=== PATIENT | male | born 1980 | race Two or more races ===

== ENCOUNTER 2019-08-16 10:47 | Inpatient (IN) | payer OTHER ==
--- NOTE | 2019-08-16 15:04 | PN ---
[facility] Progress Note Note: Patient is a 38 male homeless with hx of alcohol dependence is here for alcohol detox referred from [facility] after evaluation for alcohol intoxication evaluated 08/16/2019. As per hospital discharge summary patient was also evaluated d/t suicidal ideation, patient denies suicidal ideation. PMHX : multiple falls d/t alcohol intoxication with last fall two days ago d/t not using cane. Psych: depression. Patient meets criteria for admission to Detox for alcohol
[2019-08-16 15:44] VITALS: BMI 19.8
--- NOTE | 2019-08-16 16:05 | HP ---
CIWA Score Nausea/Vomitin-No Nausea/No Vomiting Muscle Tremors: 2 Anxiety: 0-No Anxiety, at Ease Agitation: 0-Normal Activity Paroxysmal Sweats: No Perspiration Orientation: 0-Oriented Tacttile Disturbances: 0-None Auditory Disturbances: 0-None Visual Disturbances: 0-None Headache: 1-Very Mild CIWA-Ar Total Score: 3 - Admission Criteria OASAS Guidelines: Admission for Medically Managed Detox: Requires at least one of the followin. CIWA greater than 12 2. Seizures within the past 24 hours 3. Delirium tremens within the past 24 hours 4. Hallucinations within the past 24 hours 5. Acute intervention needed for co occurring medical disorder 6. Acute intervention needed for co occurring psychiatric disorder 7. Severe withdrawal that cannot be handled at a lower level of care (continued vomiting, continued diarrhea, abnormal vital signs) requiring intravenous medication and/or fluids 8. Admitting History and Physical - Admission Chief Complaint: alcohol detox History of Present Illness: 38 yo M Hx of Alcohol abuse presents to [facility] for detox and rehab for alcohol abuse. pt states that he drinks 1 pint / day and drinks 2-3 x/ week. pt states that normally he gets tremors . he states that in January he fell after drinking binge drinking episode and had brain hemorrhage requiring surgery. he states that he may have had a seizure but cannot remember. PT was dc from jail in may 26 loss of insurance and lost follow up with neurologist Last drink was yesterday evening and he had a pint of vodka, causing him to fall asleep on the street. someone found him on the street and called the ambulance. he was sent to [facility] and discharged this morning and sent here. Pt is homeless and hopes to talk to a geriatric social work professor. he used to work as a sales operations specialist at [employer] Allergies: denies Pt admitted for detox History Source: Patient Limitations to Obtaining History: No Limitations Admission ROS S - HPI Allergies/Adverse Reactions: Allergies Allergy/AdvReac Type Severity Reaction Status Date / Time Penicillins Allergy Hives Verified 08/16/19 15:29 Exam Limitations: No Limitations - Ebola screening Have you traveled outside of the country in the last 21 days: No Have you had contact with anyone from an Ebola affected area: No - Review of Systems Constitutional: No Symptoms Reported EENT: reports: Recent change in vision (since his brain surgery) Respiratory: denies: Cough, Shortness of Breath Cardiac: denies: Chest Pain GI: denies: Constipated, Diarrhea, Nausea, Poor Appetite, Vomiting Musculoskeletal: reports: Back Pain Neuro: denies: Headache, Numbness Patient History - Smoking Cessation Smoking history: Never smoked - Substances abused Alcohol Substance route: Oral Frequency: Daily Amount used: 1 PINT OF VODKA Age of first use: 19 Date of last use: 08/15/19 Admission Physical Exam [facility] - Vital Signs Vital Signs: Vital Signs - 24 hr 08/16/19 15:30 Temperature 99.1 F Pulse Rate 66 Respiratory 18 Rate Blood Pressure 125/74 - Physical General Appearance: Yes: No Apparent Distress, Nourished HEENTM: Yes: Within Normal Limits, EOMI, Normocephalic, Normal Voice Respiratory: Yes: Chest Non-Tender, Lungs Clear, Normal Breath Sounds, No Respiratory Distress, No Accessory Muscle Use. No: Wheezing Cardiology: Yes: Within Normal Limits, Regular Rhythm, Regular Rate, S1, S2. No : JVD, Murmur Abdominal: Yes: Normal Bowel Sounds, Non Tender, Soft Musculoskeletal: Yes: Back pain Extremities: Yes: Normal Capillary Refill. No: Swelling, Calf Tenderness Neurological: Yes: k 9 police officer II-XII NML intact, Fully Oriented, Normal Mood/Affect Integumentary: Yes: Normal Color, Dry, Other (scabbing of b/l LE) - Diagnostic (1) Alcohol abuse Current Visit: Yes Status: Acute (2) History of intracranial hemorrhage Current Visit: Yes Status: Chronic Cleared for Admission [facility] - Detox or Rehab [facility] Level of Care: Medically Managed Detox Regimen/Protocol: Librium Breathalyzer - Breathalyzer Breathalyzer: 0 Urine Drug Screen - Test Device Lot number: [id number] Expiration date: 02/21/21 - Control Is test valid?: Yes - Results Drug screen NEGATIVE: Yes Inpatient Rehab Admission - Rehab Decision to Admit Inpatient rehab admission?: No
[2019-08-16] MEDS ORDERED: chlordiazePOXIDE HCL 25 MG CAPSULE PO PRN (16:28)
[2019-08-16] MEDS ORDERED: hydrOXYzine PAMOATE 25 MG CAPSULE (FP) PO PRN (16:28)
[2019-08-16] MEDS ORDERED: MAGNESIUM CITRATE 300 ML BOTTLE PO PRN (16:28)
[2019-08-16] MEDS ORDERED: ACETAMINOPHEN 325 MG TABLET (FP) PO PRN ×2 (16:28)
[2019-08-16] MEDS ORDERED: METHOCARBAMOL 500 MG TABLET PO PRN (16:28)
[2019-08-16] MEDS ORDERED: MAGNESIUM HYDROX 2400MG/30ML ORAL SUSPENSION 30 ML CUP PO PRN (16:28)
[2019-08-16] MEDS ORDERED: MENTHOL/PHENOL 1 EACH UD MM PRN (16:28)
[2019-08-16] MEDS ORDERED: BISMUTH SUBSALICYLATE 524 MG/30 ML UD PO PRN (16:28)
[2019-08-16] MEDS ORDERED: IBUPROFEN 400 MG TABLET (FP) PO PRN (16:28)
[2019-08-16] MEDS ORDERED: MAG HYDROX/AL HYDROX/SIMETH 30 ML UNIT-DOSE CUP PO PRN (16:28)
--- NOTE | 2019-08-16 16:40 | PN ---
Teaching Attending Note Name of Resident: Brunilda Padilla ATTENDING PHYSICIAN STATEMENT I saw and evaluated the patient. I reviewed the resident's note and discussed the case with the resident. I agree with the resident's findings and plan as documented. SUBJECTIVE: 38 y.o. male w/ etoh use, reports 1 pint every other day , states he had a seizure in January 2019 requiring brain surgery , then was transferred to a residential until approximately May 2019 , was d/c due to lapse in insurance coverage. d/c from [facility] today , was in ER 2/2 etoh intoxication, depression and suicidal ideation . Pt denies SI / HI at this time. OBJECTIVE: wnwd , NAD , mild UE tremors . Vital Signs - 24 hr 08/16/19 15:30 Temperature 99.1 F Pulse Rate 66 Respiratory 18 Rate Blood Pressure 125/74 ASSESSMENT AND PLAN: AUD - Librium detox pt recalls being on Keppra in the past - will restart for seizure prophylaxis after TBI / brain surgery , w/ intstructions to /up w/ neurology .Pt states his brother took him to a neurologist's office in [place] and was unable to be seen due to lack of insurance coverage. Pt is agreeable to f/up w/ neurology .
[2019-08-16] MEDS: chlordiazePOXIDE HCL 25 MG CAPSULE PO SCH ×2 (18:33→22:24)
[2019-08-16] MEDS: THIAMINE HCL 100 MG TABLET (FP) PO SCH (22:25)
[2019-08-16] MEDS: levETIRAcetam 500 MG TABLET (FP) PO SCH (22:25)
[2019-08-17] MEDS: chlordiazePOXIDE HCL 25 MG CAPSULE PO SCH ×4 (06:01→22:11)
[2019-08-17 09:47] LABS: HEMATOCRIT 42.2 % (35.4-49); HEMOGLOBIN 14.1 GM/dL (11.7-16.9); MCH 31.2 pg (25.7-33.7); MCHC 33.5 g/dl (32.0-35.9); MEAN PLT VOLUME 7.6 fl (7.5-11.1); PLATELET COUNT 217 K/MM3 (134-434); RBC 4.54 M/mm3 (4.00-5.60); RDW 15.6 % (11.9-15.9); WHITE BLOOD COUNT 6.2 K/mm3 (4.0-10.0)
[2019-08-17 10:06] LABS: ALBUMIN 3.1 g/dl (3.4-5.0); BILIRUBIN,TOTAL 0.4 mg/dL (0.2-1); BLOOD UREA NITROGEN 7.5 mg/dL (7-18); CREATININE 0.9 mg/dL (0.55-1.3); POTASSIUM 3.2 mmol/L (3.5-5.1); TOT PROT 6.4 g/dl (6.4-8.2)
[2019-08-17] MEDS: levETIRAcetam 500 MG TABLET (FP) PO SCH ×2 (10:26→22:11)
[2019-08-17] MEDS: PRENATAL VITAMINS W/ FOLIC ACID TABLET (FP) PO SCH (10:26)
--- NOTE | 2019-08-17 10:36 | PN ---
S CIWA - CIWA Score Nausea/Vomitin Muscle Tremors: 2 Anxiety: 2 Agitation: 0-Normal Activity Paroxysmal Sweats: 3 Orientation: 0-Oriented Tacttile Disturbances: 1-Very Mild Itch/Numbness Auditory Disturbances: 0-None Visual Disturbances: 1-Very Mild Sensitivity Headache: 1-Very Mild CIWA-Ar Total Score: 13 [facility] Progress Note (SOAP) Subjective: Patient c/o of interrupted sleep, nausea and vomiting , chronic shoulder pain, body aches Objective: 08/17/19 15:14 Vital Signs Temperature 97.9 F 08/17/19 13:26 Pulse Rate 68 08/17/19 13:26 Respiratory Rate 16 08/17/19 13:26 Blood Pressure 112/76 08/17/19 13:26 O2 Sat by Pulse Oximetry (%) Laboratory Last Values WBC 6.2 K/mm3 (4.0-10.0) 08/17/19 07:30 RBC 4.54 M/mm3 (4.00-5.60) 08/17/19 07:30 Hgb 14.1 GM/dL (11.7-16.9) 08/17/19 07:30 Hct 42.2 % (35.4-49) 08/17/19 07:30 MCV 93.0 fl (80-96) 08/17/19 07:30 MCH 31.2 pg (25.7-33.7) 08/17/19 07:30 MCHC 33.5 g/dl (32.0-35.9) 08/17/19 07:30 RDW 15.6 % (11.9-15.9) 08/17/19 07:30 Plt Count 217 K/MM3 (134-434) 08/17/19 07:30 MPV 7.6 fl (7.5-11.1) 08/17/19 07:30 Sodium 140 mmol/L (136-145) 08/17/19 07:30 Potassium 3.2 mmol/L (3.5-5.1) L 08/17/19 07:30 Chloride 103 mmol/L (98-107) 08/17/19 07:30 Carbon Dioxide 32 mmol/L (21-32) 08/17/19 07:30 Anion Gap 5 MMOL/L (8-16) L 08/17/19 07:30 BUN 7.5 mg/dL (7-18) 08/17/19 07:30 Creatinine 0.9 mg/dL (0.55-1.3) 08/17/19 07:30 Est GFR (CKD-EPI)AfAm 123.39 08/17/19 07:30 Est GFR (CKD-EPI)NonAf 106.46 08/17/19 07:30 Random Glucose 98 mg/dL (74-106) 08/17/19 07:30 Calcium 9.0 mg/dL (8.5-10.1) 08/17/19 07:30 Total Bilirubin 0.4 mg/dL (0.2-1) 08/17/19 07:30 AST 14 U/L (15-37) L 08/17/19 07:30 ALT 15 U/L (13-61) 08/17/19 07:30 Alkaline Phosphatase 58 U/L (45-117) 08/17/19 07:30 Total Protein 6.4 g/dl (6.4-8.2) 08/17/19 07:30 Albumin 3.1 g/dl (3.4-5.0) L 08/17/19 07:30 Assessment: 08/17/19 15:16 Patient is Aox3 no acute distress EENT WNL + left shoulder pain, ROM, ambulating in the unit with cane withdrawal sx hypoklalemia Plan: Patient missed 10Am dose librium d/t feeling nauseous zofran prn K-dur 20 qd repeat K+ in AM fluids as tolerated Continue detox continue to monitor
[2019-08-17] MEDS ORDERED: FLU VACCINE QUAD 60 MCG/0.5 ML (MDV 19-20) IM ONE (12:00)
--- NOTE | 2019-08-17 13:46 | EKG ---
Test Reason : Blood Pressure : / mmHG Vent. Rate : 067 BPM Atrial Rate : 067 BPM P-R Int : 114 ms QRS Dur : 098 ms QT Int : 388 ms P-R-T Axes : 051 061 054 degrees QTc Int : 409 ms NORMAL SINUS RHYTHM NORMAL ECG NO PREVIOUS ECGS AVAILABLE Confirmed by SAMANTHA JIMÉNEZ MD ([id number]) on 08/17/2019 1:45:35 PM Referred By: Confirmed By:SAMANTHA JIMÉNEZ MD
[2019-08-17] MEDS: NICOTINE 14 MG/24 HOURS TOPICAL PATCH TD SCH (13:48)
[2019-08-17] MEDS: LIDOCAINE 5% TOPICAL PATCH TP SCH (13:48)
[2019-08-17] MEDS: POTASSIUM CHLORIDE TABS 20 MEQ TABLET.ER (FP) PO SCH (17:24)
[2019-08-17] MEDS: LIDOCAINE PATCH REMOVAL MC SCH (22:10)
[2019-08-17] MEDS: THIAMINE HCL 100 MG TABLET (FP) PO SCH (22:11)
[2019-08-18] MEDS: chlordiazePOXIDE HCL 25 MG CAPSULE PO SCH ×4 (06:01→22:31)
[2019-08-18] MEDS: PRENATAL VITAMINS W/ FOLIC ACID TABLET (FP) PO SCH (11:10)
[2019-08-18] MEDS: POTASSIUM CHLORIDE TABS 20 MEQ TABLET.ER (FP) PO SCH (11:11)
[2019-08-18] MEDS: levETIRAcetam 500 MG TABLET (FP) PO SCH ×2 (11:11→22:31)
[2019-08-18] MEDS: LIDOCAINE 5% TOPICAL PATCH TP SCH (11:14)
[2019-08-18] MEDS: NICOTINE 14 MG/24 HOURS TOPICAL PATCH TD SCH (11:14)
--- NOTE | 2019-08-18 12:33 | PN ---
[facility] CIWA - CIWA Score Nausea/Vomitin-No Nausea/No Vomiting Muscle Tremors: None Anxiety: 3 Agitation: 2 Paroxysmal Sweats: 3 Orientation: 0-Oriented Tacttile Disturbances: 0-None Auditory Disturbances: 0-None Visual Disturbances: 0-None Headache: 2-Mild CIWA-Ar Total Score: 10 S Progress Note (SOAP) Subjective: c/o anxiety, sweats, headache, and irritability. Objective: 08/18/19 12:32 Vital Signs 08/18/19 08/18/19 06:26 09:16 Temperature 96.8 F L 96.0 F L Pulse Rate 65 80 Respiratory 18 20 Rate Blood Pressure 99/57 L 105/70 Laboratory Last Values WBC 6.2 K/mm3 (4.0-10.0) 08/17/19 07:30 RBC 4.54 M/mm3 (4.00-5.60) 08/17/19 07:30 Hgb 14.1 GM/dL (11.7-16.9) 08/17/19 07:30 Hct 42.2 % (35.4-49) 08/17/19 07:30 MCV 93.0 fl (80-96) 08/17/19 07:30 MCH 31.2 pg (25.7-33.7) 08/17/19 07:30 MCHC 33.5 g/dl (32.0-35.9) 08/17/19 07:30 RDW 15.6 % (11.9-15.9) 08/17/19 07:30 Plt Count 217 K/MM3 (134-434) 08/17/19 07:30 MPV 7.6 fl (7.5-11.1) 08/17/19 07:30 Sodium 140 mmol/L (136-145) 08/17/19 07:30 Potassium 4.9 mmol/L (3.5-5.1) 08/18/19 08:00 Chloride 103 mmol/L (98-107) 08/17/19 07:30 Carbon Dioxide 32 mmol/L (21-32) 08/17/19 07:30 Anion Gap 5 MMOL/L (8-16) L 08/17/19 07:30 BUN 7.5 mg/dL (7-18) 08/17/19 07:30 Creatinine 0.9 mg/dL (0.55-1.3) 08/17/19 07:30 Est GFR (CKD-EPI)AfAm 123.39 08/17/19 07:30 Est GFR (CKD-EPI)NonAf 106.46 08/17/19 07:30 Random Glucose 98 mg/dL (74-106) 08/17/19 07:30 Calcium 9.0 mg/dL (8.5-10.1) 08/17/19 07:30 Total Bilirubin 0.4 mg/dL (0.2-1) 08/17/19 07:30 AST 14 U/L (15-37) L 08/17/19 07:30 ALT 15 U/L (13-61) 08/17/19 07:30 Alkaline Phosphatase 58 U/L (45-117) 08/17/19 07:30 Total Protein 6.4 g/dl (6.4-8.2) 08/17/19 07:30 Albumin 3.1 g/dl (3.4-5.0) L 08/17/19 07:30 RPR Titer Nonreactive (NONREACTIVE) 08/17/19 07:30 Labs noted. Assessment: 08/18/19 12:33 AOX3, in no acute respiratory distress. Full ROM, ambulating in the unit. Withdrawal symptoms. Plan: continue detox. Increase fluids.
[2019-08-18] MEDS: THIAMINE HCL 100 MG TABLET (FP) PO SCH (22:31)
[2019-08-18] MEDS: MELATONIN 5 MG TABLETS PO PRN (22:31)
[2019-08-18] MEDS: LIDOCAINE PATCH REMOVAL MC SCH (23:06)
[2019-08-19] MEDS ORDERED: chlordiazePOXIDE HCL 10 MG CAPSULE PO PRN
[2019-08-19] MEDS: chlordiazePOXIDE HCL 10 MG CAPSULE PO SCH ×4 (05:42→22:26)
[2019-08-19] MEDS: levETIRAcetam 500 MG TABLET (FP) PO SCH ×2 (10:12→22:26)
[2019-08-19] MEDS: PRENATAL VITAMINS W/ FOLIC ACID TABLET (FP) PO SCH (10:12)
[2019-08-19] MEDS: POTASSIUM CHLORIDE TABS 20 MEQ TABLET.ER (FP) PO SCH (10:12)
[2019-08-19] MEDS: LIDOCAINE 5% TOPICAL PATCH TP SCH (10:14)
[2019-08-19] MEDS: NICOTINE 14 MG/24 HOURS TOPICAL PATCH TD SCH (10:16)
[2019-08-19] MEDS ORDERED: ACETAMINOPHEN 325 MG TABLET (FP) PO ONE (13:53)
--- NOTE | 2019-08-19 13:53 | PN ---
[facility] CIWA - CIWA Score Nausea/Vomitin-No Nausea/No Vomiting Muscle Tremors: 2 Anxiety: 3 Agitation: 0-Normal Activity Paroxysmal Sweats: 2 Orientation: 0-Oriented Tacttile Disturbances: 0-None Auditory Disturbances: 0-None Visual Disturbances: 0-None Headache: 0-None Present CIWA-Ar Total Score: 7 S Progress Note (SOAP) Subjective: 38 years old male admitted on 08/16/19 for alcohol withdrawal sx management treating with librium detox regiment feeling ok today ambulating with cane steady gait reports chronic shoulders and right wrist pain 11/01 tylenal 650 mg po x 1 lidocain to both shoulders and right wrist Objective: 08/19/19 13:54 Vital Signs Temperature 97.2 F L 08/19/19 13:18 Pulse Rate 84 08/19/19 13:18 Respiratory Rate 18 08/19/19 13:18 Blood Pressure 123/88 08/19/19 13:18 O2 Sat by Pulse Oximetry (%) Laboratory Last Values WBC 6.2 K/mm3 (4.0-10.0) 08/17/19 07:30 RBC 4.54 M/mm3 (4.00-5.60) 08/17/19 07:30 Hgb 14.1 GM/dL (11.7-16.9) 08/17/19 07:30 Hct 42.2 % (35.4-49) 08/17/19 07:30 MCV 93.0 fl (80-96) 08/17/19 07:30 MCH 31.2 pg (25.7-33.7) 08/17/19 07:30 MCHC 33.5 g/dl (32.0-35.9) 08/17/19 07:30 RDW 15.6 % (11.9-15.9) 08/17/19 07:30 Plt Count 217 K/MM3 (134-434) 08/17/19 07:30 MPV 7.6 fl (7.5-11.1) 08/17/19 07:30 Sodium 140 mmol/L (136-145) 08/17/19 07:30 Potassium 4.9 mmol/L (3.5-5.1) 08/18/19 08:00 Chloride 103 mmol/L (98-107) 08/17/19 07:30 Carbon Dioxide 32 mmol/L (21-32) 08/17/19 07:30 Anion Gap 5 MMOL/L (8-16) L 08/17/19 07:30 BUN 7.5 mg/dL (7-18) 08/17/19 07:30 Creatinine 0.9 mg/dL (0.55-1.3) 08/17/19 07:30 Est GFR (CKD-EPI)AfAm 123.39 08/17/19 07:30 Est GFR (CKD-EPI)NonAf 106.46 08/17/19 07:30 Random Glucose 98 mg/dL (74-106) 08/17/19 07:30 Calcium 9.0 mg/dL (8.5-10.1) 08/17/19 07:30 Total Bilirubin 0.4 mg/dL (0.2-1) 08/17/19 07:30 AST 14 U/L (15-37) L 08/17/19 07:30 ALT 15 U/L (13-61) 08/17/19 07:30 Alkaline Phosphatase 58 U/L (45-117) 08/17/19 07:30 Total Protein 6.4 g/dl (6.4-8.2) 08/17/19 07:30 Albumin 3.1 g/dl (3.4-5.0) L 08/17/19 07:30 RPR Titer Nonreactive (NONREACTIVE) 08/17/19 07:30 lab noted Assessment: 08/19/19 13:55 alchol withdrawaL chronic shoulders pain Plan: librium regimen cane for ambulation aid and lidocaine patch
[2019-08-19] MEDS: THIAMINE HCL 100 MG TABLET (FP) PO SCH (22:26)
[2019-08-19] MEDS: MELATONIN 5 MG TABLETS PO PRN (22:26)
[2019-08-19] MEDS: LIDOCAINE PATCH REMOVAL MC SCH (23:43)
[2019-08-20] MEDS: chlordiazePOXIDE HCL 10 MG CAPSULE PO SCH ×2 (06:01→17:35)
[2019-08-20] MEDS: levETIRAcetam 500 MG TABLET (FP) PO SCH ×2 (10:06→22:20)
[2019-08-20] MEDS: LIDOCAINE 5% TOPICAL PATCH TP SCH (10:06)
[2019-08-20] MEDS: POTASSIUM CHLORIDE TABS 20 MEQ TABLET.ER (FP) PO SCH (10:06)
[2019-08-20] MEDS: PRENATAL VITAMINS W/ FOLIC ACID TABLET (FP) PO SCH (10:06)
[2019-08-20] MEDS: NICOTINE 14 MG/24 HOURS TOPICAL PATCH TD SCH (10:07)
--- NOTE | 2019-08-20 12:58 | PN ---
[facility] CIWA - CIWA Score Nausea/Vomitin-No Nausea/No Vomiting Muscle Tremors: 1-None Visible, but [place] Anxiety: 1-Mildly Anxious Agitation: 0-Normal Activity Paroxysmal Sweats: 1-Minimal Palms Moist Orientation: 0-Oriented Tacttile Disturbances: 0-None Auditory Disturbances: 0-None Visual Disturbances: 0-None Headache: 0-None Present CIWA-Ar Total Score: 3 [facility] Progress Note (SOAP) Subjective: 39 years old male admitted on 08/16/19 for alcohol withdrawal sx management treating with librium detox regimen ambulating with cane steady gait social with peers in day room encourage the patient to attend behavior and psychosocial therapies groups and meetings while in detox Objective: 08/20/19 12:58 Vital Signs Temperature 95.9 F L 08/20/19 09:27 Pulse Rate 83 08/20/19 09:27 Respiratory Rate 18 08/20/19 09:27 Blood Pressure 112/73 08/20/19 09:27 O2 Sat by Pulse Oximetry (%) Laboratory Last Values WBC 6.2 K/mm3 (4.0-10.0) 08/17/19 07:30 RBC 4.54 M/mm3 (4.00-5.60) 08/17/19 07:30 Hgb 14.1 GM/dL (11.7-16.9) 08/17/19 07:30 Hct 42.2 % (35.4-49) 08/17/19 07:30 MCV 93.0 fl (80-96) 08/17/19 07:30 MCH 31.2 pg (25.7-33.7) 08/17/19 07:30 MCHC 33.5 g/dl (32.0-35.9) 08/17/19 07:30 RDW 15.6 % (11.9-15.9) 08/17/19 07:30 Plt Count 217 K/MM3 (134-434) 08/17/19 07:30 MPV 7.6 fl (7.5-11.1) 08/17/19 07:30 Sodium 140 mmol/L (136-145) 08/17/19 07:30 Potassium 4.9 mmol/L (3.5-5.1) 08/18/19 08:00 Chloride 103 mmol/L (98-107) 08/17/19 07:30 Carbon Dioxide 32 mmol/L (21-32) 08/17/19 07:30 Anion Gap 5 MMOL/L (8-16) L 08/17/19 07:30 BUN 7.5 mg/dL (7-18) 08/17/19 07:30 Creatinine 0.9 mg/dL (0.55-1.3) 08/17/19 07:30 Est GFR (CKD-EPI)AfAm 123.39 08/17/19 07:30 Est GFR (CKD-EPI)NonAf 106.46 08/17/19 07:30 Random Glucose 98 mg/dL (74-106) 08/17/19 07:30 Calcium 9.0 mg/dL (8.5-10.1) 08/17/19 07:30 Total Bilirubin 0.4 mg/dL (0.2-1) 08/17/19 07:30 AST 14 U/L (15-37) L 08/17/19 07:30 ALT 15 U/L (13-61) 08/17/19 07:30 Alkaline Phosphatase 58 U/L (45-117) 08/17/19 07:30 Total Protein 6.4 g/dl (6.4-8.2) 08/17/19 07:30 Albumin 3.1 g/dl (3.4-5.0) L 08/17/19 07:30 RPR Titer Nonreactive (NONREACTIVE) 08/17/19 07:30 lab noted Assessment: 08/20/19 12:58 alcohol withdrawal Plan: librium regiment
[2019-08-20] MEDS: LIDOCAINE PATCH REMOVAL MC SCH (22:21)
[2019-08-20] MEDS: THIAMINE HCL 100 MG TABLET (FP) PO SCH (22:21)
[2019-08-20] MEDS: MELATONIN 5 MG TABLETS PO PRN (22:21)
[2019-08-21] MEDS ORDERED: chlordiazePOXIDE HCL 10 MG CAPSULE PO ONE (05:00)
[2019-08-21 07:23] VITALS: BP 102/67; PULSE 63; TEMP 97.1
--- NOTE | 2019-08-21 10:12 | DS ---
[facility] Detox Discharge Summary Admission Date: 08/16/19 Discharge Date: 08/21/19 - History Present History: Alcohol Dependence Additional Comments: 39 years old male admitted on 08/16/19 for alcohol withdrawal sx management treated with librium detox regimen ambulating with cane steady gait patient has completed librium regiment and tolerated well alert oriented x 3 cardiac s1s2 regular rate rhythm respiratory clear lungs bilaterally on auscultation skin warm and dry - Physical Exam Results Vital Signs: Vital Signs Temperature 97.1 F L 08/21/19 07:22 Pulse Rate 63 08/21/19 07:22 Respiratory Rate 18 08/21/19 07:22 Blood Pressure 102/67 08/21/19 07:22 O2 Sat by Pulse Oximetry (%) Pertinent Admission Physical Exam Findings: alcohol withdrawal Laboratory Last Values WBC 6.2 K/mm3 (4.0-10.0) 08/17/19 07:30 RBC 4.54 M/mm3 (4.00-5.60) 08/17/19 07:30 Hgb 14.1 GM/dL (11.7-16.9) 08/17/19 07:30 Hct 42.2 % (35.4-49) 08/17/19 07:30 MCV 93.0 fl (80-96) 08/17/19 07:30 MCH 31.2 pg (25.7-33.7) 08/17/19 07:30 MCHC 33.5 g/dl (32.0-35.9) 08/17/19 07:30 RDW 15.6 % (11.9-15.9) 08/17/19 07:30 Plt Count 217 K/MM3 (134-434) 08/17/19 07:30 MPV 7.6 fl (7.5-11.1) 08/17/19 07:30 Sodium 140 mmol/L (136-145) 08/17/19 07:30 Potassium 4.9 mmol/L (3.5-5.1) 08/18/19 08:00 Chloride 103 mmol/L (98-107) 08/17/19 07:30 Carbon Dioxide 32 mmol/L (21-32) 08/17/19 07:30 Anion Gap 5 MMOL/L (8-16) L 08/17/19 07:30 BUN 7.5 mg/dL (7-18) 08/17/19 07:30 Creatinine 0.9 mg/dL (0.55-1.3) 08/17/19 07:30 Est GFR (CKD-EPI)AfAm 123.39 08/17/19 07:30 Est GFR (CKD-EPI)NonAf 106.46 08/17/19 07:30 Random Glucose 98 mg/dL (74-106) 08/17/19 07:30 Calcium 9.0 mg/dL (8.5-10.1) 08/17/19 07:30 Total Bilirubin 0.4 mg/dL (0.2-1) 08/17/19 07:30 AST 14 U/L (15-37) L 08/17/19 07:30 ALT 15 U/L (13-61) 08/17/19 07:30 Alkaline Phosphatase 58 U/L (45-117) 08/17/19 07:30 Total Protein 6.4 g/dl (6.4-8.2) 08/17/19 07:30 Albumin 3.1 g/dl (3.4-5.0) L 08/17/19 07:30 RPR Titer Nonreactive (NONREACTIVE) 08/17/19 07:30 lab noted - Treatment Hospital Course: Detox Protocol Followed, Detoxed Safely, Responded well, Discharged Condition Good, Rehab Referral Accepted Patient has Accepted a Rehab Referral to: [facility] chemical dependent - Medication Discharge Medications: Ambulatory Orders NK [No Known Home Medication] 08/16/19 - Diagnosis (1) Alcohol dependence, uncomplicated Status: Acute (2) Ambulates with cane Status: Chronic - AMA Did Patient Leave Against Medical Advice: No CIWA Score - CIWA Score Nausea/Vomitin-No Nausea/No Vomiting Muscle Tremors: 1-None Visible, but [place] Anxiety: 0-No Anxiety, at Ease Agitation: 0-Normal Activity Paroxysmal Sweats: No Perspiration Orientation: 0-Oriented Tacttile Disturbances: 0-None Auditory Disturbances: 0-None Visual Disturbances: 0-None Headache: 0-None Present CIWA-Ar Total Score: 1
== END 2019-08-21 09:02 | disposition home or self-care (01) | DRG 775 ==
LOC: YASAS 10:47 → Y3N 17:19
PROVIDERS: ADMIT Allergy & Immunology; ATTEND Allergy & Immunology
PROC: HZ2ZZZZ Detoxification Services for Substance Abuse Treatment (ICD-10-PCS; principal; 2019-08-16)
DX: F10.230 Alcohol dependence with withdrawal, uncomplicated (principal); E87.6 Hypokalemia; M25.511 Pain in right shoulder; M25.512 Pain in left shoulder; M25.531 Pain in right wrist; G89.29 Other chronic pain; R26.81 Unsteadiness on feet; Z99.89 Dependence on other enabling machines and devices; Z87.820 Personal history of traumatic brain injury; Z86.79 Personal history of other diseases of the circulatory system; Z88.0 Allergy status to penicillin; Z59.0 Homelessness
CPT/HCPCS: 36415; 80053; 84132; 85027; 86593; 93005; 93010; Q2036